=== PATIENT | female | born 1960 | race Caucasian/White ===

== ENCOUNTER 2017-02-08 20:14 | Emergency (ER) | payer MEDICAID ==
[~2017-02-08] VITALS: Ht 154.9 cm; Wt 61.7 kg
[2017-02-08 20:25] VITALS: BP 164/73
--- NOTE | 2017-02-08 21:26 | NUR ---
TO ER BED 8
--- NOTE | 2017-02-08 21:30 | NUR ---
56 Y/O W/C/O ABD PAIN, NAUSEA, DIARRHEA AND MILD WEAKNESS X 3 WKS ON AND OFF. PT STATES WAS SEEN ON 02/04/17 AT A DIFFERENT HOSPITAL AND ZOFRAN AND TRAMADOL WERE PRESCRIBED BUT SHE SYMPTOMS STILL THE SAME. ER MD MADE AWARE.
[2017-02-08] MEDS ORDERED: NACL 0.9% 1,000 ML IV ONE (22:00)
[2017-02-08 22:20] LABS: BASOPHILS # (AUTO) 0.2 K/uL (0.00-0.22); BASOPHILS % (AUTO) 1.4 % (0.0-2.0); EOSINOPHILS # (AUTO) 0.3 K/uL (0-0.4); EOSINOPHILS % (AUTO) 2.8 % (0.0-4.0); HEMATOCRIT 47.3 % (36-48); HEMOGLOBIN 15.3 g/dL (12.0-16.0); LYMPHOCYTES # (AUTO) 2.4 K/uL (2.5-16.5); LYMPHOCYTES % (AUTO) 22.1 % (20.5-51.1); MEAN CORPUSCULAR HEMOGLOBIN 30 pg (27-31); MEAN CORPUSCULAR HGB CONC 33 g/dL (33-37); MEAN CORPUSCULAR VOLUME 92 fL (80-94); MONOCYTES # (AUTO) 0.5 K/uL (0.8-1.0); MONOCYTES % (AUTO) 4.2 % (1.7-9.3); NEUTROPHILS # (AUTO) 7.6 K/uL (1.8-7.7); NEUTROPHILS % (AUTO) 69.5 % (42.2-75.2); PLATELET COUNT (AUTO) 220 K/uL (140-450); RED BLOOD CELL COUNT(AUTO) 5.16 MIL/uL (4.20-5.40); RED CELL DISTRIBUTION WIDTH 12.7 % (11.6-13.7)
[2017-02-08] MEDS ORDERED: ONDANSETRON 4 MG/2 ML VIAL IVP ONE (22:40)
--- NOTE | 2017-02-08 22:40 | NUR ---
PT C/O AARON VELASCO MD NOTIFIED OF VSS.
--- NOTE | 2017-02-08 22:41 | NUR ---
AARON BARBOUR AT BEDSIDE EVALUATING PT.
[2017-02-08 22:42] LABS: ALBUMIN 3.8 g/dL (3.4-5.0); ANION GAP 10.9 (8-16); CALCIUM 9.1 mg/dL (8.5-10.1); CARBON DIOXIDE 32.8 mmol/L (21-32); CREATININE 0.6 mg/dL (0.6-1.3); POTASSIUM 3.7 mmol/L (3.5-5.1); TOTAL BILIRUBIN 0.8 mg/dL (0.0-1.0); TOTAL PROTEIN, SERUM 7.6 g/dL (6.4-8.2)
[2017-02-08 22:44] LABS: INR 1.1 (0.8-1.2); PARTIAL THROMBOPLASTIN TIME 25.5 secs (22-35.6); PROTHROMBIN TIME 10.6 secs (10.8-13.4)
[2017-02-08] MEDS ORDERED: KETOROLAC 30 MG/ML VIAL IVP ONE (23:00)
--- NOTE | 2017-02-08 23:24 | NUR ---
PT BACK FROM X-RAY.
[2017-02-08 23:35] VITALS: BP 165/85
--- NOTE | 2017-02-08 23:35 | NUR ---
Patient discharged with v/s stable. Written and verbal after care instructions given and explained. Patient alert, oriented and verbalized understanding of instructions. Wheel Chair Assisted with by caregiver. All questions addressed prior to discharge. ID band removed. Patient advised to follow up with PMD THIS WK. Rx of TRAMADOL, BENTYL, AND ZOFRAN given. Patient educated on indication of medication including possible reaction and side effects. Opportunity to ask questions provided and answered.
== END 2017-02-08 23:35 | disposition home or self-care (01) ==
LOC: MED 20:14
DX: K56.7 Ileus, unspecified (principal); E11.9 Type 2 diabetes mellitus without complications; I10 Essential (primary) hypertension; Z90.49 Acquired absence of other specified parts of digestive tract
CPT/HCPCS: 36415; 74022; 80053; 81002; 81025; 85025; 85610; 85730; 96361; 96374; 96375; 99285; J1885; J2405; J7030

== ENCOUNTER 2017-02-11 11:34 | Emergency (ER) | payer MEDICAID ==
[~2017-02-11] VITALS: Ht 160 cm; Wt 61.2 kg
[2017-02-11 11:49] VITALS: BP 150/50
--- NOTE | 2017-02-11 13:24 | NUR ---
Patient ambulated to bed 7. RN evaluating patient at bedside.
--- NOTE | 2017-02-11 13:25 | NUR ---
56/F BIB SISTER C/O EPIGASTRIC PAIN WITH NAUSEA AND DIARRHEA X2 WEEKS. SKIN IS PINK/WARM/DRY; AAOX4 WITH EVEN AND STEADY GAIT; LUNGS CLEAR BL; HR EVEN AND REGULAR; PT DENIES ANY FEVER, CP, SOB, OR COUGH AT THIS TIME; PATIENT STATES PAIN OF 10/10 AT THIS TIME; PATIENT POSITIONED FOR COMFORT; HOB ELEVATED; BEDRAILS UP X2; BED DOWN. ER MD MADE AWARE OF PT STATUS.
[2017-02-11] MEDS ORDERED: ONDANSETRON 4 MG ODT PO ONE (13:30)
[2017-02-11] MEDS ORDERED: KETOROLAC 60 MG/2 ML VIAL IM ONE (13:30)
[2017-02-11 14:25] VITALS: BP 171/70
--- NOTE | 2017-02-11 14:25 | NUR ---
Patient discharged with BP 171/70; DENIES ANY HEADACHE OR DIZZINESS AT THIS TIME; ER MD DR DIMAS NOTIFIED; MD AWARE. Written and verbal after care instructions given and explained. Patient alert, oriented and verbalized understanding of instructions. Ambulatory with steady gait. All questions addressed prior to discharge. ID band removed. Patient advised to follow up with PMD. Rx of ZOFRAN, CIPRO& NORCO given. Patient educated on indication of medication including possible reaction and side effects. Opportunity to ask questions provided and answered.
[2017-04-03] MEDS ORDERED: GOOD SENSE OMEP20 MG PO (09:43)
[2017-04-03] MEDS ORDERED: HYDROCHLOROTHIA25 M1 PO (09:43)
[2017-04-03] MEDS ORDERED: LOSARTAN POTAS100 MG PO (09:43)
[2017-04-03] MEDS ORDERED: NORVASC10 MG PO (09:43)
[2017-04-03] MEDS ORDERED: METFORMIN HCL500 MG PO (09:43)
[2017-04-03] MEDS ORDERED: ASPIR 8181 MG PO (09:43)
== END 2017-02-11 14:25 | disposition home or self-care (01) ==
LOC: MED 11:34
DX: R19.7 Diarrhea, unspecified (principal); R10.9 Unspecified abdominal pain; R11.0 Nausea; E11.9 Type 2 diabetes mellitus without complications; I10 Essential (primary) hypertension; Z90.49 Acquired absence of other specified parts of digestive tract; Z90.710 Acquired absence of both cervix and uterus
CPT/HCPCS: 36415; 74176; 80053; 83690; 85025; 96372; 99285; J1885; S0119

== ENCOUNTER 2017-02-21 11:39 | Emergency (ER) | payer MEDICAID ==
[~2017-02-21] VITALS: Ht 147.3 cm; Wt 60.3 kg
[2017-02-21 11:42] VITALS: BP 167/81
[2017-02-21] MEDS ORDERED: FAMOTIDINE 20 MG/2 ML VIAL IVP ONE (11:45)
[2017-02-21] MEDS ORDERED: ONDANSETRON 4 MG/2 ML VIAL IVP ONE (11:45)
[2017-02-21] MEDS ORDERED: NACL 0.9% 1,000 ML IV SCH (11:45)
[2017-02-21] MEDS ORDERED: NACL 0.9% 1,000 ML IV ONE (11:50)
[2017-02-21] MEDS ORDERED: HYDROmorphone 1 MG/ML AMP IVP ONE (11:50)
--- NOTE | 2017-02-21 12:10 | NUR ---
Patient ambulated to bed 03.
--- NOTE | 2017-02-21 12:15 | NUR ---
PATIENT PRESENTS TO ED WITH C/O LOWER ABDOMINAL PAIN X 1 MONTH WEAKNESS, NAUSEA, LOOSE STOOLS HX---DM, HTN, RX---BENTYL, LORTAB, CIPRO, ZOFRAN, TRAMADOL, SKIN IS PINK/WARM/DRY; AAOX4 WITH EVEN AND STEADY GAIT; LUNGS CLEAR BL; HR EVEN AND REGULAR; PT DENIES ANY FEVER, CP, SOB, OR COUGH AT THIS TIME; PATIENT STATES PAIN OF 4/10 AT THIS TIME; VSS; PATIENT POSITIONED FOR COMFORT; HOB ELEVATED; BEDRAILS UP X2; BED DOWN. ER MD MADE AWARE OF PT STATUS.
--- NOTE | 2017-02-21 13:30 | NUR ---
PER PT REQUEST BEDSIDE BEDPAN PROVIDED FOR URINE SAMPLE
--- NOTE | 2017-02-21 14:47 | NUR ---
PT ASSISTED TO RESTROOM VIA WHEEL CHAIR BY MARIELA LOGAN
[2017-02-21 16:30] VITALS: BP 158/89
--- NOTE | 2017-02-21 16:30 | NUR ---
Patient discharged with v/s stable. Written and verbal after care instructions given and explained. Patient alert, oriented and verbalized understanding of instructions. Wheel Chair Assisted with to home. All questions addressed prior to discharge. ID band removed. Patient advised to follow up with PMD. Rx of TYLENOL WITH CODIENE,ENSURE COMPLETE,ZOFRAN given. Patient educated on indication of medication including possible reaction and side effects. Opportunity to ask questions provided and answered.
[2017-04-03] MEDS ORDERED: METFORMIN HCL500 MG PO (09:43)
[2017-04-03] MEDS ORDERED: GOOD SENSE OMEP20 MG PO (09:43)
[2017-04-03] MEDS ORDERED: LOSARTAN POTAS100 MG PO (09:43)
[2017-04-03] MEDS ORDERED: ASPIR 8181 MG PO (09:43)
[2017-04-03] MEDS ORDERED: HYDROCHLOROTHIA25 M1 PO (09:43)
[2017-04-03] MEDS ORDERED: NORVASC10 MG PO (09:43)
== END 2017-02-21 16:30 | disposition home or self-care (01) ==
LOC: MED 11:39
DX: R10.30 Lower abdominal pain, unspecified (principal); E11.9 Type 2 diabetes mellitus without complications; I10 Essential (primary) hypertension
CPT/HCPCS: 36415; 80053; 81001; 82150; 82948; 83690; 85025; 96361; 96374; 96375; 99284; J1170; J2405; J3490; J7030

== ENCOUNTER 2017-04-02 17:58 | Inpatient (IN) | payer MEDICAID ==
[~2017-04-02] VITALS: Ht 154.9 cm; Wt 61.2 kg
[2017-04-02 18:01] VITALS: BP 145/86
--- NOTE | 2017-04-02 19:27 | NUR ---
Patient to bed 04.
[2017-04-02 19:28] LABS: BASOPHILS # (AUTO) 0.1 K/uL (0.00-0.22); BASOPHILS % (AUTO) 1.3 % (0.0-2.0); EOSINOPHILS # (AUTO) 0.2 K/uL (0-0.4); EOSINOPHILS % (AUTO) 2.1 % (0.0-4.0); HEMATOCRIT 44.9 % (36-48); HEMOGLOBIN 14.3 g/dL (12.0-16.0); LYMPHOCYTES % (AUTO) 18.9 % (20.5-51.1); MEAN CORPUSCULAR HEMOGLOBIN 29 pg (27-31); MEAN CORPUSCULAR HGB CONC 32 g/dL (33-37); MEAN CORPUSCULAR VOLUME 92 fL (80-94); MONOCYTES # (AUTO) 0.3 K/uL (0.8-1.0); MONOCYTES % (AUTO) 3.2 % (1.7-9.3); NEUTROPHILS # (AUTO) 8.2 K/uL (1.8-7.7); NEUTROPHILS % (AUTO) 74.5 % (42.2-75.2); PLATELET COUNT (AUTO) 222 K/uL (140-450); RED BLOOD CELL COUNT(AUTO) 4.88 MIL/uL (4.20-5.40); RED CELL DISTRIBUTION WIDTH 12.8 % (11.6-13.7); WHITE BLOOD COUNT (AUTO) 10.8 K/uL (4.8-10.8)
--- NOTE | 2017-04-02 19:28 | NUR ---
56 Y/O F BIB FAMILY W/C/O GENERAL WEAKNESS, DIZZINESS, HEADACHES, NAUSEA, DIARRHEA, AND LOW GRADE FEVER X 3 WKS ON AND OFF. NO S/S OF DISTRESS NOTED AT THE MOMENT. ER MD MADE AWARE.
[2017-04-02 19:40] LABS: APPEARANCE,URINE CLEAR (CLEAR); BILIRUBIN,URINE NEGATIVE (NEGATIVE); BLOOD, URINE NEGATIVE (NEGATIVE); LEUKOCYTE ESTERASE ,URINE NEGATIVE (NEGATIVE); NITRITE, URINE NEGATIVE (NEGATIVE); PH,URINE 6.5 (5.0-9.0); PROTEIN,URINE NEGATIVE (NEGATIVE); UGLUCOSE NEGATIVE (NEGATIVE); UROBILINOGEN,URINE 0.2 EU/dL (0.2 - 1)
[2017-04-02 19:44] LABS: ALBUMIN 3.9 g/dL (3.4-5.0); ANION GAP 12.1 (8-16); CALCIUM 8.9 mg/dL (8.5-10.1); CARBON DIOXIDE 31.1 mmol/L (21-32); CREATININE 0.6 mg/dL (0.6-1.3); POTASSIUM 3.2 mmol/L (3.5-5.1); TOTAL BILIRUBIN 0.5 mg/dL (0.0-1.0); TOTAL PROTEIN, SERUM 8.3 g/dL (6.4-8.2)
[2017-04-02 19:47] LABS: COLOR,URINE STRAW (YELLOW)
[2017-04-02] MEDS ORDERED: NACL 0.9% 1,000 ML IV ONE (19:55)
[2017-04-02] MEDS ORDERED: POTASSIUM CHLORIDE 10 MEQ TABER PO ONE (19:55)
[2017-04-02] MEDS ORDERED: ONDANSETRON 4 MG/2 ML VIAL IVP ONE ×2 (20:05→22:10)
--- NOTE | 2017-04-02 20:40 | NUR ---
Dr. Woo evaluating patient at bedside.
[2017-04-02] MEDS ORDERED: HYDROmorphone 1 MG/ML AMP IVP ONE (20:50)
[2017-04-02] MEDS ORDERED: KETOROLAC 30 MG/ML VIAL IVP ONE (21:20)
--- NOTE | 2017-04-02 21:50 | NUR ---
PT C/O NAUSEA ER MD NOTIFIED. PT CONTINUES ON MONITOR, VSS.
--- NOTE | 2017-04-02 22:31 | NUR ---
PT RESTING IN BED, ON CLERK RATING, NO S/S OF DISTRESS NOTED AT THE MOMENT. WILL CONT TO MONITOR.
[2017-04-02] MEDS ORDERED: ACETAMINOPHEN 325 MG TAB PO PRN (23:20)
[2017-04-02] MEDS ORDERED: MORPHINE SULFATE 2 MG/ML SYR IVP PRN (23:20)
[2017-04-02] MEDS ORDERED: MAGNESIUM HYDROXIDE 2400 MG/30 ML UDC PO PRN (23:20)
[2017-04-02] MEDS ORDERED: HYDROcodone/APAP 5/325 MG 1 TAB TAB PO PRN (23:20)
[2017-04-02] MEDS ORDERED: DEXTROSE 50% 50 ML SYR IVP PRN (23:20)
[2017-04-02] MEDS ORDERED: LORazepam 2 MG/ML VIAL IVP PRN (23:20)
--- NOTE | 2017-04-02 23:23 | NUR ---
Patient will be admitted to care of DR Corey COELLO. Admited to TELEMTRY. Will go to room 105A. Belongings list completed. Report to SUSY TORRES.
--- NOTE | 2017-04-02 23:25 | NUR ---
PT TRASFERED TO TELEMETRY FLOOR, ACCOMPANIED BY RN AND EMT. MANAGER MERCHANDISING IN BED. NO S/S OF DSITRESS NOTED UPON TRASFER.
--- NOTE | 2017-04-02 23:30 | NUR ---
RECEIVED FROM ER PER TRESA AWAKE AND ALERT. NO SOB. DX. ABDOMINAL PAIN. DENIES PAIN AT THIS TIME. CALL LIGHT WITH IN REACH AND CARE PLANS FOR THE NIGHT DISCUSSED WITH HER. COMORAN SPEAKING ONLY AND USED [employer] [facility] # [id number] FOR ASSESSMENTS AND HISTORY. SPOUSE AT BEDSIDE FOR NOW. ALSO COMORAN SPEAKING. SKIN INTACT AND BILATERAL SEQUENTIALS IN PLACE. RAPID RESPONSE DISCUSSED WITH THEM.
[2017-04-03 00:44] VITALS: BP 141/68
--- NOTE | 2017-04-03 04:51 | NUR ---
SLEEPING WELL. CALL LIGHT WITH IN REACH. NO PAIN COMPLAINTS THIS SHIFT YET.
[2017-04-03] MEDS: BLOOD GLUCOSE MONITORING 1 DEV DEV FS SCH ×4 (06:01→21:04)
[2017-04-03] MEDS: ONDANSETRON 4 MG/2 ML VIAL IVP PRN ×3 (06:48→21:06)
--- NOTE | 2017-04-03 06:48 | NUR ---
PT. AWAKE AT THIS TIME AND REQUESTED FOR ANTI-NAUSEA MEDICATION. MEDICATED REQUESTED. VERBALIZES SIMPLE NEEDS.
[2017-04-03 06:56] LABS: BASOPHILS # (AUTO) 0.3 K/uL (0.00-0.22); BASOPHILS % (AUTO) 2.9 % (0.0-2.0); EOSINOPHILS # (AUTO) 0.1 K/uL (0-0.4); EOSINOPHILS % (AUTO) 1.4 % (0.0-4.0); HEMATOCRIT 41.8 % (36-48); HEMOGLOBIN 14.1 g/dL (12.0-16.0); LYMPHOCYTES # (AUTO) 2.2 K/uL (2.5-16.5); LYMPHOCYTES % (AUTO) 23.3 % (20.5-51.1); MEAN CORPUSCULAR HEMOGLOBIN 30 pg (27-31); MEAN CORPUSCULAR HGB CONC 34 g/dL (33-37); MEAN CORPUSCULAR VOLUME 90 fL (80-94); MONOCYTES # (AUTO) 0.6 K/uL (0.8-1.0); MONOCYTES % (AUTO) 6.4 % (1.7-9.3); NEUTROPHILS # (AUTO) 6.1 K/uL (1.8-7.7); PLATELET COUNT (AUTO) 195 K/uL (140-450); RED BLOOD CELL COUNT(AUTO) 4.64 MIL/uL (4.20-5.40); RED CELL DISTRIBUTION WIDTH 13.1 % (11.6-13.7); WHITE BLOOD COUNT (AUTO) 9.3 K/uL (4.8-10.8)
--- NOTE | 2017-04-03 06:56 | NUR ---
PATIENT HAS BEEN SCREENED AND CATEGORIZED MODERATE NUTRITION RISK. PATIENT WILL BE SEEN WITHIN 3-5 DAYS OF ADMISSION. 04/04/17-04/06/17 KAR CALIX MS, RDN
--- NOTE | 2017-04-03 07:16 | NUR ---
ENDORSED TO THE NEXT RN FOR CONTINUITY OF CARE AWAKE AND ALERT. DENIES PAIN. ORIENTED X 4. ROM X 4. USES CALL LIGHT FOR HELP.
--- NOTE | 2017-04-03 07:16 | NUR ---
RECEIVED REPORT FROM NIGHT NURSE. PT IS AOOX4 GERMAN SPEAKING, ON ROOM AIR, IV TO LEFT AC 18 G SALINE LOCK PATENT AND INTACT. SKIN INTACT. INITIAL ASSESSMENT COMPLETED, REVIEW PLAN OF CARE WITH PT, PT VERBALIZED UNDERSTANDING. ALL NEEDS MET. WILL CONTINUE TO MONITOR.
[2017-04-03 07:42] LABS: ANION GAP 13.4 (8-16); CALCIUM 8.7 mg/dL (8.5-10.1); CARBON DIOXIDE 28.8 mmol/L (21-32); CREATININE 0.7 mg/dL (0.6-1.3); POTASSIUM 3.2 mmol/L (3.5-5.1)
[2017-04-03 07:53] VITALS: BP 126/69
--- NOTE | 2017-04-03 09:32 | NUR ---
CHECKED IN ON PT PT C/O OF NAUSEA. WILL MEDICATE ONCE NAUSEA MEDICATION IS DUE. OFFER HOT TEA OR ICE PT REFUSED. ALL NEEDS MET. WILL CONTINUE TO MONITOR.
[2017-04-03] MEDS ORDERED: HYDR25TA32 PO (09:43)
[2017-04-03] MEDS ORDERED: OMEP20TC24 PO (09:43)
[2017-04-03] MEDS ORDERED: ASPI81EC97 PO (09:43)
[2017-04-03] MEDS ORDERED: AMLO10TA PO (09:43)
[2017-04-03] MEDS ORDERED: METF500T4 PO (09:43)
[2017-04-03] MEDS ORDERED: LOSA100T25 PO (09:43)
[2017-04-03] MEDS ORDERED: POTASSIUM CHLORIDE 10 MEQ TABER PO SCH (11:00)
--- NOTE | 2017-04-03 11:22 | NUR ---
DUE MEDICATIONS GIVEN. PT C/O NAUSEA MEDICATED PER MD ORDERS. FAMILY AT BEDSIDE. WILL CONTINUE TO MONITOR.
--- NOTE | 2017-04-03 11:30 | NUR ---
WAITING FOR DR LORENZO CONSULTS, WILL HOLD LUNCH AND INSULIN COVERAGE UNTIL DR LORENZO SEES PT. BS OF 183.
--- NOTE | 2017-04-03 14:02 | NUR ---
CHECKED IN ON PT, PT STATES NO NAUSEA AT THIS TIME. FAMILY AT BEDSIDE. WILL CONTINUE TO MONITOR.
--- NOTE | 2017-04-03 15:45 | NUR ---
PT ATE LATE LUNCH, PT STATES NO NAUSEA AFTER EATING.ALL NEEDS MET. WILL CONTINUE TO MONITOR.
[2017-04-03 16:00] VITALS: BP 124/72
[2017-04-03] MEDS: INSULIN LISPRO SLIDING SCALE 100 UNITS/ML VIAL SUBQ PRN (16:41)
[2017-04-03] MEDS ORDERED: BISACODYL 5 MG TABEC PO SCH (17:15)
[2017-04-03] MEDS ORDERED: MAGNESIUM CITRATE 300 ML BTL PO SCH (17:15)
[2017-04-03] MEDS ORDERED: BISACODYL 5 MG TABEC PO ONE ×2 (18:00→22:00)
[2017-04-03] MEDS ORDERED: MAGNESIUM CITRATE 300 ML BTL PO ONE ×2 (18:05→22:00)
--- NOTE | 2017-04-03 18:09 | NUR ---
DUE MEDICATIONS GIVEN. PT TOLERATED WELL. UPDATED PT ON PLAN OF CARE. PT VERBALIZED UNDERSTANDING
--- NOTE | 2017-04-03 19:05 | NUR ---
ENDORSED PLAN OF CARE, PT IN STABLE CONDITION.
--- NOTE | 2017-04-03 19:10 | NUR ---
RECEIVED PT FROM CARLOS JAIN PT IS PORTUGUESE SPEAKER AAOX4 AMBULATORY , HL ON LEFT AC GAUGE # 20 PATENT, RELATIVES AT BED SIDE INITIAL ASSESSMENT DONE
[2017-04-03 20:00] VITALS: BP 96/50
--- NOTE | 2017-04-03 21:40 | NUR ---
PT COOPERATIVE TO TAKE MEDIC FOR COLON PREPARATION
[2017-04-03] MEDS ORDERED: MAGNESIUM CITRATE 300 ML BTL ONE (21:57)
[2017-04-03] MEDS ORDERED: SODIUM PHOSPHATE 118 ML ENEM RC ONE (22:00)
[2017-04-04] VITALS: BP 114/71
--- NOTE | 2017-04-04 | NUR ---
PT ON COLONOSCOPY PREPARATION ON LIQUID STOOL YELLOW COLOR NOT CLEAR YET
--- NOTE | 2017-04-04 01:00 | NUR ---
PT NPO LIQUID STOOL YELLOW COLOR GETTING CLEAR
[2017-04-04 04:00] VITALS: BP 138/72
--- NOTE | 2017-04-04 04:00 | NUR ---
PT HAS BEEN WALKING TO THE RESTROOM VOIDING WELL NOT DISTRESS NOTED IV ONRT AC INFUSING WELL Addendum: 04/04/17 at 0552 by Narcisa Perez RN PT WRONG DOCUMENTATION NOT IV FLUID
--- NOTE | 2017-04-04 04:10 | NUR ---
SPONGE BATH GIVEN LINEN CHANGED STOOL GETTING MORE CLEAR
[2017-04-04] MEDS: ONDANSETRON 4 MG/2 ML VIAL IVP PRN ×2 (05:03→09:42)
[2017-04-04] MEDS: BLOOD GLUCOSE MONITORING 1 DEV DEV FS SCH ×3 (06:03→16:31)
[2017-04-04 06:45] LABS: ANION GAP 9.8 (8-16); CALCIUM 8.5 mg/dL (8.5-10.1); CARBON DIOXIDE 34.1 mmol/L (21-32); CREATININE 0.7 mg/dL (0.6-1.3); POTASSIUM 3.9 mmol/L (3.5-5.1)
[2017-04-04 06:48] LABS: BASOPHILS # (AUTO) 0.1 K/uL (0.00-0.22); BASOPHILS % (AUTO) 1.4 % (0.0-2.0); EOSINOPHILS # (AUTO) 0.1 K/uL (0-0.4); EOSINOPHILS % (AUTO) 1.3 % (0.0-4.0); HEMATOCRIT 40.5 % (36-48); HEMOGLOBIN 13.6 g/dL (12.0-16.0); LYMPHOCYTES # (AUTO) 1.8 K/uL (2.5-16.5); LYMPHOCYTES % (AUTO) 20.1 % (20.5-51.1); MEAN CORPUSCULAR HEMOGLOBIN 31 pg (27-31); MEAN CORPUSCULAR HGB CONC 34 g/dL (33-37); MEAN CORPUSCULAR VOLUME 91 fL (80-94); MONOCYTES # (AUTO) 0.6 K/uL (0.8-1.0); MONOCYTES % (AUTO) 6.1 % (1.7-9.3); NEUTROPHILS # (AUTO) 6.5 K/uL (1.8-7.7); NEUTROPHILS % (AUTO) 71.1 % (42.2-75.2); PLATELET COUNT (AUTO) 200 K/uL (140-450); RED BLOOD CELL COUNT(AUTO) 4.43 MIL/uL (4.20-5.40); RED CELL DISTRIBUTION WIDTH 12.8 % (11.6-13.7); WHITE BLOOD COUNT (AUTO) 9.1 K/uL (4.8-10.8)
--- NOTE | 2017-04-04 07:00 | NUR ---
RECEIVED REPORT FROM NIGHT NURSE. PT IS AOOX4 UPPER SORBIAN SPEAKING, ON ROOM AIR, IV TO LEFT AC 18 G SALINE LOCK PATENT AND INTACT. SKIN INTACT. INITIAL ASSESSMENT COMPLETED, REVIEW PLAN OF CARE WITH PT, PT VERBALIZED UNDERSTANDING. ALL NEEDS MET. WILL CONTINUE TO MONITOR
[2017-04-04 07:30] VITALS: BP 135/91
[2017-04-04 07:39] LABS: PROTHROMBIN TIME 10.5 secs (10.8-13.4)
--- NOTE | 2017-04-04 09:40 | NUR ---
PT C/O OF NAUSEA, WILL MEDICATE PER MD ORDERS. FAMILY AT BEDSIDE. ALL NEEDS MET. WILL CONTINUE TO MONITOR.
[2017-04-04] MEDS: MIDAZOLAM 2 MG/2 ML VIAL ONE ×2 (10:03→11:30)
[2017-04-04] MEDS: fentaNYL 0.05 MG/ML VIAL ONE ×2 (10:03→11:30)
--- NOTE | 2017-04-04 10:28 | NUR ---
PT WAS TAKEN TO OR IN STABLE CONDITION.
[2017-04-04] MEDS ORDERED: fentaNYL 0.05 MG/ML VIAL IVP ONE (11:50)
[2017-04-04] MEDS ORDERED: MIDAZOLAM 2 MG/2 ML VIAL IVP ONE (11:50)
--- NOTE | 2017-04-04 12:05 | NUR ---
PT RETURNED FROM OR.
--- NOTE | 2017-04-04 13:10 | NUR ---
DISCUSSED PT PLAN OF CARE AND DISCHARGE PLAN WITH DAUGHTER AND PT, BOTH VERBALIZED UNDERSTANDING.
--- NOTE | 2017-04-04 15:10 | NUR ---
PT CURRENTLY RESTING IN BED, NO S/S OF DISTRESS NOTED. AWAITING FOR TO BRING CLOTHES TO CHANGED. ALL NEEDS MET.
[2017-04-04 15:58] VITALS: BP 124/66
[2017-04-04] MEDS: INSULIN LISPRO SLIDING SCALE 100 UNITS/ML VIAL SUBQ PRN (16:34)
--- NOTE | 2017-04-04 16:45 | NUR ---
PT SIGNED ALL DISCHARGE PAPERWORK, DISCHARGE INSTRUCTIONS GIVEN, PCP FOLLOW UP INFORMATION GIVE, PT VERBALIZED UNDERSTANDING. IV REMOVED TIP INTACT, ARM BANDS REMOVED, ALL PERSONAL BELONGING WITH PT, IN TO FACTORY CLERK PT.
--- NOTE | 2017-04-04 17:08 | NUR ---
PT WAS WHEELED OUT TO FRONT LOBBY PT IN STABLE CONDITION.
--- NOTE | 2017-04-05 15:57 | NUR ---
RETRO REVIEW ER REPORT, H&P, OR REPORT FAXED TO [facility] [phone] PHONE RUKHSANA [phone] Addendum: 04/05/17 at 1601 by Helen Meng CM ALSO FAXED CONSULT
== END 2017-04-04 17:08 | disposition home or self-care (01) | DRG 241 ==
LOC: MED 17:58 → MTU 23:27
PROVIDERS: ADMIT Internal Medicine Cardiovascular Disease; ATTEND Internal Medicine Cardiovascular Disease
PROC: 0DB68ZX Excision of Stomach, Via Natural or Artificial Opening Endoscopic, Diagnostic (ICD-10-PCS; principal; 2017-04-04 11:50)
PROC: 0DJD8ZZ Inspection of Lower Intestinal Tract, Via Natural or Artificial Opening Endoscopic (ICD-10-PCS; 2017-04-04 11:50)
DX: K29.70 Gastritis, unspecified, without bleeding (principal); I10 Essential (primary) hypertension; K29.80 Duodenitis without bleeding; K20.9 Esophagitis, unspecified; E11.9 Type 2 diabetes mellitus without complications; E78.5 Hyperlipidemia, unspecified; R19.7 Diarrhea, unspecified; Z90.49 Acquired absence of other specified parts of digestive tract; Z90.710 Acquired absence of both cervix and uterus
CPT/HCPCS: 36415; 80048; 80053; 81003; 82150; 82948; 83036; 83690; 84703; 85025; 85610; 85730; 87045; 87081; 96361; 96374; 96375; 96376; 99285; J1815; J1885; J2250; J2405; J3010; J7030

== ENCOUNTER 2017-04-11 07:04 | Emergency (ER) | payer MEDICAID ==
[~2017-04-11] VITALS: Ht 142.2 cm; Wt 59.9 kg
[~2017-04-11 07:04] MED LIST: AMLO10TA PO; ASPI81EC97 PO; HYDR25TA32 PO; LOSA100T25 PO; METF500T4 PO; OMEP20TC24 PO
[2017-04-11 07:07] VITALS: BP 145/70
[2017-04-11] MEDS ORDERED: NACL 0.9% 1,000 ML IV SCH (07:11)
[2017-04-11] MEDS ORDERED: ONDANSETRON 4 MG/2 ML VIAL IVP ONE (07:15)
--- NOTE | 2017-04-11 07:15 | NUR ---
PT TAKEN TO BED 4
--- NOTE | 2017-04-11 07:16 | NUR ---
56F BIB FAMILY C/O GENERALIZED WEAKNESS X 1 WEEK.HX: DM,HTN.PT STATES NAUSEA , DIZZINESS & HEADACHE AT THIS TIME . DENIES V/D; SKIN IS PINK/WARM/DRY; AAOX4 WITH EVEN AND STEADY GAIT; LUNGS CLEAR BL; HR EVEN AND REGULAR; PT DENIES ANY FEVER, CP, SOB, OR COUGH AT THIS TIME; PATIENT STATES PAIN OF 8/10 AT THIS TIME; VSS; PATIENT POSITIONED FOR COMFORT; HOB ELEVATED; BEDRAILS UP X2; BED DOWN. ER MD MADE AWARE OF PT STATUS.
--- NOTE | 2017-04-11 07:30 | NUR ---
INSERTED IV NO20G KILEY. PT TOLERATED PROCEDURE WELL. IV PATENT/INTACT. ADMINISTERED IVF& MED ORDER. Addendum: 04/11/17 at 0754 by [email or web address] AT BEDSIDE.
[2017-04-11 07:35] LABS: APPEARANCE,URINE CLEAR (CLEAR); BILIRUBIN,URINE NEGATIVE (NEGATIVE); BLOOD, URINE NEGATIVE (NEGATIVE); COLOR,URINE YELLOW (YELLOW); LEUKOCYTE ESTERASE ,URINE TRACE (NEGATIVE); NITRITE, URINE NEGATIVE (NEGATIVE); PH,URINE 5.5 (5.0-9.0); PROTEIN,URINE NEGATIVE (NEGATIVE); UGLUCOSE NEGATIVE (NEGATIVE); UROBILINOGEN,URINE 0.2 EU/dL (0.2 - 1)
--- NOTE | 2017-04-11 07:36 | NUR ---
AARON FREED EVALUATING PT AT BEDSIDE. Addendum: 04/11/17 at 0751 by [email or web address] SON AT BEDSIDE.
[2017-04-11 07:37] LABS: BASOPHILS # (AUTO) 0.2 K/uL (0.00-0.22); BASOPHILS % (AUTO) 1.5 % (0.0-2.0); EOSINOPHILS # (AUTO) 0.3 K/uL (0-0.4); EOSINOPHILS % (AUTO) 1.8 % (0.0-4.0); HEMATOCRIT 41.2 % (36-48); HEMOGLOBIN 14.1 g/dL (12.0-16.0); LYMPHOCYTES # (AUTO) 2.3 K/uL (2.5-16.5); LYMPHOCYTES % (AUTO) 15.2 % (20.5-51.1); MEAN CORPUSCULAR HEMOGLOBIN 31 pg (27-31); MEAN CORPUSCULAR HGB CONC 34 g/dL (33-37); MEAN CORPUSCULAR VOLUME 91 fL (80-94); MONOCYTES # (AUTO) 0.6 K/uL (0.8-1.0); MONOCYTES % (AUTO) 3.7 % (1.7-9.3); NEUTROPHILS % (AUTO) 77.8 % (42.2-75.2); PLATELET COUNT (AUTO) 233 K/uL (140-450); RED BLOOD CELL COUNT(AUTO) 4.53 MIL/uL (4.20-5.40); RED CELL DISTRIBUTION WIDTH 13.1 % (11.6-13.7)
[2017-04-11] MEDS ORDERED: ACETAMINOPHEN EXTRA STRENGTH 500 MG TAB PO ONE (07:40)
--- NOTE | 2017-04-11 07:46 | NUR ---
GASTON 05/06. GAVE TYLENOL ORDER.
[2017-04-11 07:47] LABS: WHITE BLOOD COUNT (AUTO) 15.4 K/uL (4.8-10.8)
[2017-04-11 07:50] LABS: AMYLASE 36 U/L (25-115); ANION GAP 11.8 (8-16); CALCIUM 9.1 mg/dL (8.5-10.1); CARBON DIOXIDE 32.2 mmol/L (21-32); CREATININE 0.7 mg/dL (0.6-1.3); LIPASE 150 U/L (73-393)
--- NOTE | 2017-04-11 07:52 | NUR ---
X RAY AT BEDSIDE.
[2017-04-11 07:53] LABS: RBC,URINE NONE SEEN /HPF (0-5)
[2017-04-11 07:54] LABS: BACTERIA,URINE 0-2 (RARE) /HPF (None Seen); SQUAMOUS EPITHELIAL CELL,UR 0-3 (FEW) /LPF (0-3 (FEW))
[2017-04-11 07:55] LABS: ALBUMIN 3.9 g/dL (3.4-5.0); INR 1.1 (0.8-1.2); PARTIAL THROMBOPLASTIN TIME 25.7 secs (22-35.6); TOTAL BILIRUBIN 0.7 mg/dL (0.0-1.0); TOTAL PROTEIN, SERUM 8.1 g/dL (6.4-8.2)
--- NOTE | 2017-04-11 08:13 | NUR ---
Patient appears to be resting comfortably in bed. Vital Signs within normal limits. Respirations even and unlabored.WILL CONTINUE TO MONITOR.
--- NOTE | 2017-04-11 08:30 | NUR ---
HEADACHE 5.Patient appears to be resting comfortably in bed. Vital Signs within normal limits. Respirations even and unlabored.WILL CONTINUE TO MONITOR.
--- NOTE | 2017-04-11 09:29 | NUR ---
PT TAKEN TO CT VIA MALACHI ACCOMPANIED BY CIVILIAN TECHNICIAN
--- NOTE | 2017-04-11 09:41 | NUR ---
BACK FROM CT
--- NOTE | 2017-04-11 10:00 | NUR ---
PT WENT TO RESTROOM VIA W/C.
--- NOTE | 2017-04-11 10:10 | NUR ---
Patient appears to be resting comfortably in bed. Vital Signs within normal limits. Respirations even and unlabored.WILL CONTINUE TO MONITOR.
--- NOTE | 2017-04-11 10:45 | NUR ---
STARTED ROCEPHINE 1000MG IN DEXTROSE 5% 50ML VIA RAC 100ML/HR.
[2017-04-11] MEDS ORDERED: cefTRIAXone 1,000 MG VIAL ONE (10:49)
--- NOTE | 2017-04-11 11:15 | NUR ---
ENDED ROCEPHINE 1000MG IN DEXTROSE 5% 50ML VIA RAC 100ML/HR. Patient appears to be resting comfortably in bed. Vital Signs within normal limits. Respirations even and unlabored.WILL CONTINUE TO MONITOR.
--- NOTE | 2017-04-11 11:40 | NUR ---
IV removed, catheter intact and site benign. Applied folded 4x4 gauze and tape to stop bleeding.
[2017-04-11 11:47] VITALS: BP 129/65
--- NOTE | 2017-04-11 11:47 | NUR ---
Patient discharged with v/s stable. Written and verbal after care instructions given and explained. Patient alert, oriented and verbalized understanding of instructions. Ambulatory with steady gait. All questions addressed prior to discharge. ID band removed. Patient advised to follow up with PMD. Rx of NIMA CM & ED-K+10 given. Patient educated on indication of medication including possible reaction and side effects. Opportunity to ask questions provided and answered.
== END 2017-04-11 11:47 | disposition home or self-care (01) ==
LOC: MED 07:04
DX: E87.6 Hypokalemia (principal); D72.829 Elevated white blood cell count, unspecified; R10.13 Epigastric pain; E11.9 Type 2 diabetes mellitus without complications; I10 Essential (primary) hypertension; Z79.899 Other long term (current) drug therapy; Z90.49 Acquired absence of other specified parts of digestive tract; Z90.710 Acquired absence of both cervix and uterus
CPT/HCPCS: 36415; 71010; 74176; 80053; 81001; 81025; 82150; 82553; 82948; 83690; 83880; 84484; 85025; 85610; 85730; 93005; 96361; 96365; 96375; 99285; J0696; J2405; J7030; J7060; Q0092

== ENCOUNTER 2017-05-07 11:39 | Emergency (ER) | payer MEDICAID ==
[~2017-05-07] VITALS: Ht 149.9 cm; Wt 61.9 kg
[2017-05-07 11:41] VITALS: BP 157/73
[2017-05-07 12:13] LABS: BASOPHILS # (AUTO) 0.3 K/uL (0.00-0.22); EOSINOPHILS # (AUTO) 0.1 K/uL (0-0.4); EOSINOPHILS % (AUTO) 0.9 % (0.0-4.0); HEMATOCRIT 40.9 % (36-48); HEMOGLOBIN 13.7 g/dL (12.0-16.0); LYMPHOCYTES # (AUTO) 1.8 K/uL (2.5-16.5); MEAN CORPUSCULAR HEMOGLOBIN 31 pg (27-31); MEAN CORPUSCULAR HGB CONC 34 g/dL (33-37); MEAN CORPUSCULAR VOLUME 91 fL (80-94); MONOCYTES # (AUTO) 0.7 K/uL (0.8-1.0); MONOCYTES % (AUTO) 7.5 % (1.7-9.3); NEUTROPHILS % (AUTO) 68.6 % (42.2-75.2); PLATELET COUNT (AUTO) 199 K/uL (140-450); RED BLOOD CELL COUNT(AUTO) 4.49 MIL/uL (4.20-5.40); RED CELL DISTRIBUTION WIDTH 13.6 % (11.6-13.7)
[2017-05-07 12:22] LABS: ANION GAP 12.2 (8-16); CALCIUM 8.9 mg/dL (8.5-10.1); CARBON DIOXIDE 30.5 mmol/L (21-32); CHLORIDE 105 mmol/L (98-107); CREATININE 0.6 mg/dL (0.6-1.3); GFR ARICAN-AMERICAN 133 mL/min (>90); GFR NON ARICAN-AMERICAN 110 mL/min (>90); GLUCOSE 195 mg/dL (74-106); POTASSIUM 3.7 mmol/L (3.5-5.1); SODIUM SERUM 144 mmol/L (136-145); UREA NITROGEN, BLOOD 12 mg/dL (7-18)
[2017-05-07 12:22] LABS: APPEARANCE,URINE CLEAR (CLEAR); BILIRUBIN,URINE NEGATIVE (NEGATIVE); BLOOD, URINE NEGATIVE (NEGATIVE); COLOR,URINE YELLOW (YELLOW); LEUKOCYTE ESTERASE ,URINE NEGATIVE (NEGATIVE); NITRITE, URINE NEGATIVE (NEGATIVE); PROTEIN,URINE NEGATIVE (NEGATIVE); UGLUCOSE TRACE (NEGATIVE); UROBILINOGEN,URINE 0.2 EU/dL (0.2 - 1)
[2017-05-07 12:23] LABS: AMPHETAMINE, URINE NEG. ng/ml (NEG <=1000); BARBITURATE, URINE NEG. ng/ml (NEG <=200); BENZODIAZEPINE, URINE NEG. ng/mL (NEG <=200); CANNABINOID, URINE NEG. ng/mL (NEG <=50); COCAINE, URINE NEG. ng/mL (NEG <=300); OPIATE, URINE NEG. ng/mL (NEG <=2000); PHENCYCLIDINE SCREEN,URINE NEG. ng/mL (NEG <=25)
[2017-05-07 12:25] LABS: WHITE BLOOD COUNT (AUTO) 8.9 K/uL (4.8-10.8)
[2017-05-07 12:29] LABS: ALANINE AMINOTRANSFERASE 29 U/L (14-59); ALBUMIN 3.7 g/dL (3.4-5.0); ALCOHOL, BLOOD < 3 mg/dL (<3); ALKALINE PHOSPHATASE 79 U/L (46-116); ASPARTATE AMINOTRANSFERASE 19 U/L (15-37); CREATINE KINASE, TOTAL 46 U/L (26-192); TOTAL BILIRUBIN 0.7 mg/dL (0.0-1.0); TOTAL PROTEIN, SERUM 7.7 g/dL (6.4-8.2)
[2017-05-07 12:30] LABS: ACETAMINOPHEN < 0.5 ug/ml (10-30); SALICYLATE < 2.8 mg/dL (2.8-20.0)
[2017-05-07] MEDS ORDERED: ONDANSETRON 4 MG ODT PO ONE (12:35)
[2017-05-07 12:51] VITALS: BP 157/68
== END 2017-05-07 12:51 | disposition home or self-care (01) ==
LOC: MED 11:39
DX: R45.851 Suicidal ideations (principal); E11.9 Type 2 diabetes mellitus without complications; I10 Essential (primary) hypertension; Z79.84 Long term (current) use of oral hypoglycemic drugs; Z79.899 Other long term (current) drug therapy
CPT/HCPCS: 36415; 80053; 80305; 81003; 81025; 82550; 82948; 84484; 85025; 99284; G0480; G0482; S0119